=== PATIENT | male | born 1965 | race Two or more races ===

== ENCOUNTER 2023-09-22 06:31 | Day surgery (SDC) | payer OTHER ==
[~2023-09-22] VITALS: Ht 170.2 cm; Wt 83.5 kg
[~2023-09-22 06:31] MED LIST: ATOR10TA PO; METF-489 PO; SEMA2INJ3 SC
[2023-09-22] MEDS ORDERED: ceFAZolin 2 GM/D5W100ml 100 ML IV ONE (07:07)
[2023-09-22] MEDS ORDERED: fentaNYL CITRATE 100 MCG/2 ML VL ONE (07:51)
[2023-09-22] MEDS ORDERED: ONDANSETRON HCL 4 MG/2 ML VIAL IV PRN (08:00)
[2023-09-22] MEDS ORDERED: HYDROmorphone HCL 2 MG/ML VL/or syr IV PRN (08:00)
[2023-09-22] MEDS ORDERED: MEPERIDINE HCL (25 MG/ML) 1ML VIAL IV PRN (08:00)
[2023-09-22] MEDS ORDERED: ePHEDrine SULFATE 50 MG/ML AMP ONE (08:01)
[2023-09-22] MEDS ORDERED: ONDANSETRON HCL 4 MG/2 ML VIAL ONE (08:02)
[2023-09-22] MEDS ORDERED: MEPERIDINE HCL (25 MG/ML) 1ML VIAL ONE (08:03)
[2023-09-22] MEDS ORDERED: PROPOFOL 10 MG/ML 20 ML IV ONE (08:21)
[2023-09-22 08:34] VITALS: TEMP 97.9; O2SAT 99
[2023-09-22 09:30] VITALS: BP 138/82; PULSE 82; RESP 15; O2SAT 96
== END 2023-09-22 08:34 | disposition home or self-care (01) ==
LOC: SUR 06:31
PROVIDERS: ATTEND Orthopaedic Surgery Adult Reconstructive Orthopaedic Surgery
DX: M65.342 Trigger finger, left ring finger (principal); E11.9 Type 2 diabetes mellitus without complications; Z79.84 Long term (current) use of oral hypoglycemic drugs; Z98.890 Other specified postprocedural states
CPT/HCPCS: 26055; 82962; 88305; J2175; J2405; J3010; J2704